=== PATIENT | female | born 2005 | race Two or more races ===

== ENCOUNTER 2023-04-14 20:17 | Emergency (ER) | payer SELFPAY ==
[2023-04-14 21:02] LABS: Bilirubin Negative (Negative); Blood, Urine Negative (Negative); CAUTI Indications for Culture Pelvic or flank pain; Clarity Clear (Clear); Glucose, Urine (Dipstick) Greater than 1000 mg/dL (Negative); Ketone, Urine 40 mg/dL (Negative); Leukocyte 75 Leu/uL (Negative); Nitrite Negative (Negative); Protein, Urine (Dipstick) 50 mg/dL (Neg-Trace); RBC/HPF 0-3 HPF (0-3); Specific Gravity, Urine 1.022 (1.002-1.036); Urobilinogen Normal mg/dL (Less than 2)
[2023-04-14 21:03] LABS: Bacteria/HPF 1+ HPF (None Seen)
[2023-04-14 21:04] LABS: Urine Culture Reflex No No
[2023-04-14] MEDS ORDERED: Metoclopramide HCl 10 MG (2 mL) VIAL ONE (21:22)
[2023-04-14 22:24] LABS: #Basophils 0.1 thou/uL (0.0-0.2); #Eosinphils 0.5 thou/uL (0.0-0.7); #Monocytes 0.9 thou/uL (0.11-0.59); #Neutrophils 6.7 thou/uL (1.40-6.50); %Basophils 0.8 % (0.0-1.0); %Eosinophils 4.7 % (0.0-10.0); %Lymphocytes 27.6 % (28.0-48.0); %Monocytes 8.1 % (0.0-4.0); %Neutrophils 58.3 % (31.0-61.0); Hematocrit 35.7 % (36.0-47.0); Hemoglobin 11.9 g/dL (12.0-16.0); Mean Corpuscular HGB CONC 33.3 g/dL (32.0-36.0); Mean Corpuscular Hemoglobin 26.3 pg (25.0-35.0); Mean Corpuscular Volume 78.8 fl (78.0-98.0); Mean Platelet Volume 9.9 fL (7.4-10.4); Platelet Count 422 10x3/uL (130-400); RBC Distribution Width 15.9 % (11.5-14.5); Red Blood Cell (RBC) Count 4.53 mill/uL (4.00-5.20); White Blood Cell (WBC) Count 11.5 10x3/uL (4.8-10.8)
[2023-04-14 22:36] LABS: BHCG - Serum Negative (NEGATIVE); Pregs Control Background? CLEAR/WHITE (CLR/WHITE); Pregs Control Bar Appear? YES (CONTROL BAR)
[2023-04-14] MEDS ORDERED: Sodium Chloride 0.9% 100 ML ONE (23:03)
[2023-04-14] MEDS ORDERED: cefTRIAXone (ROCEPHIN) 1 GM VIAL ONE (23:03)
[2023-04-14 23:08] LABS: ALT (SGPT) 94 U/L (8-55); Albumin 4.8 g/dL (3.5-5.0); Alkaline Phosphatase 121 U/L (40-100); Anion Gap 25 mmol/L (10-20); BUN (Urea Nitrogen) 19 mg/dL (8.4-21.0); Bilirubin, Total 0.4 mg/dL (0.2-1.2); Calc. Creatinine Clearance 0 mL/min (70-130); Calcium 10.4 mg/dL (7.8-10.44); Carbon Dioxide 24 mmol/L (22-29); Chloride 88 mmol/L (98-107); Critical Call Chemistry NUR.MH12@2308; Estimated GFR 57; Globulin 4.1 g/dL (2.4-3.5); Glucose 46 mg/dL (70-105); Potassium 3.5 mmol/L (3.5-5.1); Protein, Total 8.9 g/dL (6.0-8.3); Sodium 133 mmol/L (136-145)
[2023-04-14 23:59] LABS: AST (SGOT) 104 U/L (5-30)
== END 2023-04-15 ==
LOC: ERS 20:17
DX: N39.0 Urinary tract infection, site not specified (principal); N17.9 Acute kidney failure, unspecified; K31.84 Gastroparesis; E10.65 Type 1 diabetes mellitus with hyperglycemia
CPT/HCPCS: 36415; 36416; 80053; 81001; 84703; 85025; 96361; 96365; 96375; J0696; J2765; J3490

== ENCOUNTER 2023-04-26 12:29 | Inpatient (IN) | payer OTHER, SELFPAY ==
[2023-04-26 13:22] LABS: Base Excess -29.5 mEq/L (-2.0 to +3.0); Chloride (VBG) 93 mmol/L (98-106); Hematocrit-VBG 42 % (36.0-47.0); Hemoglobin (Hb) 14.2 g/dL (11.7-15.5); Potassium (VBG) 5.63 mmol/L (3.70-5.30); Sodium 137 mmol/L (133-146)
[2023-04-26 13:23] LABS: Hematocrit 46.3 % (36.0-47.0); Hemoglobin 13.2 g/dL (12.0-16.0); Manual Diff?? YES; Mean Corpuscular HGB CONC 28.5 g/dL (32.0-36.0); Mean Corpuscular Hemoglobin 26.9 pg (25.0-35.0); Mean Corpuscular Volume 94.3 fl (78.0-98.0); Platelet Count 525 10x3/uL (130-400); RBC Distribution Width 18.1 % (11.5-14.5); Red Blood Cell (RBC) Count 4.91 mill/uL (4.00-5.20)
[2023-04-26 13:24] LABS: pH (venous) 6.862 (7.32-7.43)
[2023-04-26 13:25] LABS: Delete Auto Diff?? YES
[2023-04-26] MEDS ORDERED: Ondansetron PF 4 MG/2 ML Vial ONE (13:27)
[2023-04-26] MEDS ORDERED: Sodium Bicarb 50 mEq/50 ML VIAL ONE (13:30)
[2023-04-26 13:38] LABS: INR-International Normal Ratio 1.4; PTT 29.9 sec (22.9-36.1); Prothrombin Time 17.3 sec (12.0-14.7)
[2023-04-26 13:42] LABS: Troponin I Less than 0.010 ng/mL (< 0.028)
[2023-04-26 13:46] LABS: Acetaminophen Less than 10 mcg/mL (10.0-30.0); Alcohol Less than 10.0 mg/dL (Less than 10); Anisocytosis SLIGHT = 6-15 cells HPF (0-5); Band 6 % (5-11); CellaVision Operator ID LAB.MJL; Eosinophils 4 % (0-10); Lipase 70 U/L (8-78); Lymphocytes 12 % (28-48); Magnesium 2.6 mg/dL (1.7-2.2); Monocytes 1 % (0-4); Myelocyte 2 % (0-0); Neutrophil 73 % (31-61); Platelet Adequacy Comment Platelets Increased; Polychromasia SLIGHT = 2-3 cells HPF (0-2); Reactive Lymphocytes 1 % (0-10); Salicylate Less than 8.0 mg/dL (15.0-30.0); Tear Drops SLIGHT = 2-5 cells HPF (0-1); Total Cell Count 97
[2023-04-26 13:48] LABS: ALT (SGPT) 213 U/L (8-55); AST (SGOT) 63 U/L (5-30); Alkaline Phosphatase 214 U/L (40-100); BUN (Urea Nitrogen) 34 mg/dL (8.4-21.0); Bilirubin, Total 0.5 mg/dL (0.2-1.2); Calc. Creatinine Clearance 0 mL/min (70-130); Calcium 9.7 mg/dL (7.8-10.44); Chloride 89 mmol/L (98-107); Estimated GFR 24; Globulin 3.8 g/dL (2.4-3.5); Potassium 5.8 mmol/L (3.5-5.1); Protein, Total 8.8 g/dL (6.0-8.3); Sodium 131 mmol/L (136-145)
[2023-04-26 13:54] LABS: Carbon Dioxide Less than 8 mmol/L (22-29); Critical Call Chemistry ERS.EGM@1353; Glucose 1042 mg/dL (70-105)
[2023-04-26] MEDS ORDERED: Acetaminophen 325 MG TAB PO PRN (14:05)
[2023-04-26] MEDS ORDERED: Dextrose 5 %-0.45 % NaCl 1,000 ML IV PRN (14:05)
[2023-04-26] MEDS ORDERED: Ondansetron PF 4 MG/2 ML Vial IVP PRN (14:05)
[2023-04-26] MEDS ORDERED: Sodium Chloride 0.9% 1,000 ML IV PRN ×4 (14:05)
[2023-04-26] MEDS ORDERED: NS 0.9% w/ 20 MEQ KCL 1,000 ML IV PRN (14:05)
[2023-04-26] MEDS ORDERED: INSULIN REGULAR IN 0.9 % NACL 100 UNITS/100 ML BAG ONE (14:27)
[2023-04-26 14:52] LABS: Bacteria/HPF 1+ HPF (None Seen); Bilirubin Negative (Negative); Blood, Urine Negative (Negative); CAUTI Indications for Culture Alt mental st,lethar; Clarity Clear (Clear); Glucose, Urine (Dipstick) Greater than 1000 mg/dL (Negative); Ketone, Urine Greater than 150 mg/dL (Negative); Leukocyte Negative Leu/uL (Negative); Nitrite Negative (Negative); Protein, Urine (Dipstick) 20 mg/dL (Neg-Trace); RBC/HPF 0-3 HPF (0-3); Squamous Epithelial 0-3 HPF (0-3); Urobilinogen Normal mg/dL (Less than 2); WBC/HPF 0-3 HPF (0-3)
[2023-04-26 14:53] LABS: Pregnancy Test - Urine (BHCG) Negative (Negative); Pregu Control Background? CLEAR/WHITE (CLR/WHITE); Pregu Control Bar Appear? YES (CONTROL BAR); Urine Culture Reflex No No
[2023-04-26 14:59] LABS: Amphetamine Not Detected (NotDetected); Barbiturates Screen Not Detected (NotDetected); Benzodiazepine Screen Not Detected (NotDetected); Cocaine Metabolite Screen Not Detected (NotDetected); Methadone Not Detected (NotDetected); Methamphetamine Not Detected (NotDetected); Opiate Screen Not Detected (NotDetected); Oxycodone Screen Not Detected (NotDetected); Phencyclidine (PCP) Not Detected (NotDetected); THC/Cannabinoid Screen Not Detected (NotDetected); Tricyclic Screen Not Detected (NotDetected)
[2023-04-26] MEDS: Sodium Bicarbonate 150 mEq in Dextrose 5% IV SCH (15:10)
[2023-04-26] MEDS: Electrolyte Replacement Protocol 1 EACH IVPB ONE (15:50)
[2023-04-26] MEDS: Heparin 5,000 UNITS/ML VIAL SC SCH (15:57)
[2023-04-26 16:17] LABS: SARS-CoV-2 NAA Rapid Test Not Detected (NotDetected)
[2023-04-26] MEDS: Lactated Ringer's 2,000 ML IV SCH (16:52)
[2023-04-26 17:00] VITALS: BMI 24.0
[2023-04-26 17:12] LABS: BUN (Urea Nitrogen) 32 mg/dL (8.4-21.0); Calc. Creatinine Clearance 30 mL/min (70-130); Calcium 9.3 mg/dL (7.8-10.44); Chloride 98 mmol/L (98-107); Estimated GFR 26; Potassium 5.4 mmol/L (3.5-5.1); Sodium 137 mmol/L (136-145)
[2023-04-26 17:26] LABS: Carbon Dioxide Less than 8 mmol/L (22-29); Glucose 894 mg/dL (70-105)
[2023-04-26] MEDS: HUMULIN R 100 UNITS in Sodium Chloride 0.9% 100 ML IVPB SCH (18:01)
[2023-04-26 19:14] LABS: Critical Call Chem-Lactate NUR.KK6@1914; Lactic Acid 10.7 mmol/L (0.5-2.2)
[2023-04-26 19:27] LABS: BUN (Urea Nitrogen) 26 mg/dL (8.4-21.0); Calc. Creatinine Clearance 38 mL/min (70-130); Calcium 7.7 mg/dL (7.8-10.44); Carbon Dioxide Less than 8 mmol/L (22-29); Chloride 111 mmol/L (98-107); Critical Call Chemistry NUR.KK6@1927; Estimated GFR 34; Glucose 471 mg/dL (70-105); Potassium 3.7 mmol/L (3.5-5.1); Sodium 141 mmol/L (136-145)
[2023-04-26] MEDS: NS 0.9% w/ 20 MEQ KCL 1,000 ML IV PRN (19:40)
[2023-04-26] MEDS: Sodium Bicarb 50 mEq/50 ML VIAL IVP SCH (19:50)
[2023-04-26] MEDS: Famotidine/PF 20 mg/2ml Vial SLOW IVP SCH (20:43)
[2023-04-26] MEDS: D5 1/2 NS w/20 mEq KCL 1,000 ML IV PRN (22:07)
[2023-04-26] MEDS: Calcium Gluconate 9.2 MEQ in Sodium Chloride 0.9% 250 ML 200 ML IVPB SCH (22:08)
[2023-04-26 23:48] LABS: Actual Bicarbonate (HCO3v) 16.1 mEq/L (22-28); Base Excess -8.8 mEq/L (-2.0 to +3.0); Chloride (VBG) 112 mmol/L (98-106); Hematocrit-VBG 29 % (36.0-47.0); Hemoglobin (Hb) 9.9 g/dL (11.7-15.5); Sodium 149 mmol/L (133-146); pH (venous) 7.329 (7.32-7.43)
[2023-04-27 00:08] LABS: Anion Gap 19 mmol/L (10-20); BUN (Urea Nitrogen) 18 mg/dL (8.4-21.0); Calc. Creatinine Clearance 48 mL/min (70-130); Calcium 8.2 mg/dL (7.8-10.44); Carbon Dioxide 19 mmol/L (22-29); Chloride 112 mmol/L (98-107); Estimated GFR 45; Glucose 188 mg/dL (70-105); Potassium 3.3 mmol/L (3.5-5.1); Sodium 147 mmol/L (136-145)
[2023-04-27] MEDS: Dextrose 50% Abboject 50 ML SYRINGE SLOW IVP PRN (00:19)
[2023-04-27 00:23] LABS: Critical Call Chem-Lactate NUR.KK6@0023; Lactic Acid 7.8 mmol/L (0.5-2.2)
[2023-04-27 00:24] LABS: Critical Call Chemistry NUR.KK6@0023; Magnesium 1.5 mg/dL (1.7-2.2); Phosphorus Less than 1.0 mg/dL (2.3-4.7)
[2023-04-27] MEDS: Magnesium 2 GM/50 ML(in water) 2 GM in Premix 1 BAG IVPB SCH (01:15)
[2023-04-27] MEDS: Potassium Phosphate 30 MMOL in Sodium Chloride 0.9% 250 ML 250 ML IVPB SCH (01:23)
[2023-04-27 04:31] LABS: Anion Gap 17 mmol/L (10-20); BUN (Urea Nitrogen) 15 mg/dL (8.4-21.0); Calc. Creatinine Clearance 53 mL/min (70-130); Calcium 7.7 mg/dL (7.8-10.44); Carbon Dioxide 18 mmol/L (22-29); Chloride 112 mmol/L (98-107); Estimated GFR 51; Glucose 154 mg/dL (70-105); Potassium 3.6 mmol/L (3.5-5.1); Sodium 143 mmol/L (136-145)
[2023-04-27 04:39] LABS: Critical Call Chem-Lactate ICU.TMC@0438; Lactic Acid 5.8 mmol/L (0.5-2.2)
[2023-04-27 08:41] LABS: Phosphorus 2.8 mg/dL (2.3-4.7)
[2023-04-27 08:42] LABS: Anion Gap 15 mmol/L (10-20); BUN (Urea Nitrogen) 12 mg/dL (8.4-21.0); Calc. Creatinine Clearance 63 mL/min (70-130); Calcium 7.7 mg/dL (7.8-10.44); Carbon Dioxide 20 mmol/L (22-29); Chloride 112 mmol/L (98-107); Estimated GFR 59; Glucose 181 mg/dL (70-105); Magnesium 1.9 mg/dL (1.7-2.2); Potassium 3.6 mmol/L (3.5-5.1); Sodium 143 mmol/L (136-145)
[2023-04-27 12:03] LABS: Anion Gap 19 mmol/L (10-20); BUN (Urea Nitrogen) 9 mg/dL (8.4-21.0); Calc. Creatinine Clearance 71 mL/min (70-130); Calcium 7.5 mg/dL (7.8-10.44); Carbon Dioxide 13 mmol/L (22-29); Chloride 108 mmol/L (98-107); Estimated GFR 68; Glucose 170 mg/dL (70-105); Potassium 3.7 mmol/L (3.5-5.1); Sodium 136 mmol/L (136-145)
[2023-04-27] MEDS ORDERED: Dextrose 5% in Water 1,000 ML IV PRN (12:29)
[2023-04-27] MEDS ORDERED: Glucagon 1 MG/ML KIT IM PRN (12:29)
[2023-04-27] MEDS ORDERED: Dextrose 50% Abboject 50 ML SYRINGE SLOW IVP PRN (12:29)
[2023-04-27] MEDS: Insulin Glargine 30 UNITS/0.3 ML VIAL SC SCH ×2 (12:40→20:40)
[2023-04-27] MEDS: Sodium Chloride 0.9% 1,000 ML IV SCH (14:02)
[2023-04-27] MEDS: HumaLOG 300 UNITS/3 ML VIAL SC PRN ×2 (16:07→20:49)
[2023-04-27] MEDS: Heparin 5,000 UNITS/ML VIAL SC SCH (20:40)
[2023-04-28 08:41] LABS: Chloride 107 mmol/L (98-107); Potassium 4.5 mmol/L (3.5-5.1); Sodium 138 mmol/L (136-145)
[2023-04-28 08:42] LABS: Calcium 8.1 mg/dL (7.8-10.44); Glucose 284 mg/dL (70-105)
[2023-04-28 08:44] LABS: Anion Gap 27 mmol/L (10-20)
[2023-04-28 08:46] LABS: BUN (Urea Nitrogen) 7 mg/dL (8.4-21.0); Calc. Creatinine Clearance 70 mL/min (70-130); Estimated GFR 63
[2023-04-28 08:53] LABS: Carbon Dioxide 9 mmol/L (22-29)
[2023-04-28] MEDS: Insulin Glargine 30 UNITS/0.3 ML VIAL SC SCH (09:00)
[2023-04-29] MEDS: hydrALAZINE 25 MG TAB PO SCH (03:58)
[2023-04-29 04:52] VITALS: TEMP 97.9
[2023-04-29 05:52] LABS: #Eosinphils 0.3 thou/uL (0.0-0.7); #Monocytes 0.4 thou/uL (0.11-0.59); #Neutrophils 2.7 thou/uL (1.40-6.50); %Basophils 0.7 % (0.0-1.0); %Eosinophils 4.9 % (0.0-10.0); %Lymphocytes 39.2 % (28.0-48.0); %Monocytes 6.9 % (0.0-4.0); %Neutrophils 47.6 % (31.0-61.0); Hematocrit 27.8 % (36.0-47.0); Hemoglobin 9.6 g/dL (12.0-16.0); Mean Corpuscular HGB CONC 34.5 g/dL (32.0-36.0); Mean Corpuscular Hemoglobin 28.7 pg (25.0-35.0); Mean Platelet Volume 10.4 fL (7.4-10.4); Platelet Count 242 10x3/uL (130-400); RBC Distribution Width 17.5 % (11.5-14.5); Red Blood Cell (RBC) Count 3.35 mill/uL (4.00-5.20); White Blood Cell (WBC) Count 5.7 10x3/uL (4.8-10.8)
[2023-04-29 06:24] LABS: Anion Gap 21 mmol/L (10-20); BUN (Urea Nitrogen) 12 mg/dL (8.4-21.0); Calc. Creatinine Clearance 90 mL/min (70-130); Calcium 8.4 mg/dL (7.8-10.44); Carbon Dioxide 17 mmol/L (22-29); Chloride 102 mmol/L (98-107); Estimated GFR 86; Glucose 266 mg/dL (70-105); Potassium 3.8 mmol/L (3.5-5.1); Sodium 136 mmol/L (136-145)
[2023-04-29] MEDS: FLU VACC QS2023-24(6MOS UP)/PF 60 MCG/0.5 ML SYRINGE IM ONE (08:17)
[2023-04-29 09:43] VITALS: BP 125/82
== END 2023-04-29 12:07 | disposition home or self-care (01) | DRG 638 ==
LOC: ERS 12:29 → CCU 14:08 → MSONC 04-27 18:50
PROVIDERS: ADMIT Internal Medicine; ATTEND Internal Medicine
PROC: 02HV33Z Insertion of Infusion Device into Superior Vena Cava, Percutaneous Approach (ICD-10-PCS; principal; 2023-04-26)
PROC: B548ZZA Ultrasonography of Superior Vena Cava, Guidance (ICD-10-PCS; 2023-04-26)
DX: E10.10 Type 1 diabetes mellitus with ketoacidosis without coma (principal); N17.9 Acute kidney failure, unspecified; E86.0 Dehydration; N18.9 Chronic kidney disease, unspecified; E83.39 Other disorders of phosphorus metabolism; E87.5 Hyperkalemia; Z11.52 Encounter for screening for COVID-19; Z88.1 Allergy status to other antibiotic agents
CPT/HCPCS: 36415; 36416; 36556; 70450; 71045; 80048; 80053; 80306; 80307; 81001; 81025; 82010; 82805; 83605; 83690; 83735; 84100; 84484; 85025; 85610; 85730; 87040; 87086; 93005; 94760; 96361; 96374; 96375; J0612; J1644; J1815; J2405; J3475; J3480; J3490; J7042; J7050; J7070; J7120; J7999; S0028; U0002

== ENCOUNTER 2023-05-06 13:29 | Inpatient (IN) | payer OTHER, SELFPAY ==
[2023-05-06] MEDS ORDERED: Sodium Bicarbonate Tab 325 MG TAB ONE (13:52)
[2023-05-06] MEDS ORDERED: Dextrose 10% in Water 250 ML ONE (13:53)
[2023-05-06] MEDS ORDERED: Insulin Regular 300 UNITS/3 ML VIAL ONE (13:53)
[2023-05-06] MEDS: Sodium Chloride 0.9% 1,000 ML IV PRN ×2 (14:09→15:23)
[2023-05-06 14:17] LABS: Hematocrit 34.1 % (36.0-47.0); Hemoglobin 9.4 g/dL (12.0-16.0); Manual Diff?? YES; Mean Corpuscular HGB CONC 27.6 g/dL (32.0-36.0); Mean Corpuscular Hemoglobin 27.6 pg (25.0-35.0); Mean Corpuscular Volume 100.3 fl (78.0-98.0); Mean Platelet Volume 10.3 fL (7.4-10.4); Platelet Count 624 10x3/uL (130-400); RBC Distribution Width 18.2 % (11.5-14.5); White Blood Cell (WBC) Count 24.8 10x3/uL (4.8-10.8)
[2023-05-06 14:20] LABS: Delete Auto Diff?? YES
[2023-05-06 14:29] LABS: Bacteria/HPF None Seen HPF (None Seen); Bilirubin Negative (Negative); Blood, Urine Negative (Negative); CAUTI Indications for Culture Alt mental st,lethar; Clarity Clear (Clear); Glucose, Urine (Dipstick) Greater than 1000 mg/dL (Negative); Ketone, Urine Greater than 150 mg/dL (Negative); Leukocyte Negative Leu/uL (Negative); Nitrite Negative (Negative); Protein, Urine (Dipstick) 30 mg/dL (Neg-Trace); RBC/HPF 0-3 HPF (0-3); Squamous Epithelial 0-3 HPF (0-3); Urine Culture Reflex No No; Urobilinogen Normal mg/dL (Less than 2); WBC/HPF None Seen HPF (0-3)
[2023-05-06 14:36] LABS: Analyzer IN Cardio ER; Base Excess -26.9 mEq/L (-2.0 to +3.0); Calcium, Ionized (venous) 1.09 mmol/L (1.16-1.32); Chloride (VBG) 101 mmol/L (98-106); Hematocrit-VBG 29 % (36.0-47.0); Hemoglobin (Hb) 9.9 g/dL (11.7-15.5); Potassium (VBG) 5.32 mmol/L (3.70-5.30); Sodium 146 mmol/L (133-146)
[2023-05-06 14:39] LABS: pH (venous) 6.955 (7.32-7.43)
[2023-05-06 14:40] LABS: Actual Bicarbonate (HCO3v) 3.3 mEq/L (22-28)
[2023-05-06 14:46] LABS: Anisocytosis SLIGHT = 6-15 cells HPF (0-5); BUN (Urea Nitrogen) 39 mg/dL (8.4-21.0); Band 4 % (5-11); Bilirubin, Total 0.3 mg/dL (0.2-1.2); Burr Cells SLIGHT = 2-5 cells HPF (0-1); Calc. Creatinine Clearance 0 mL/min (70-130); Calcium 8.3 mg/dL (7.8-10.44); CellaVision Operator ID LAB.KB; Chloride 101 mmol/L (98-107); Eosinophils 2 % (0-10); Estimated GFR 32; Lymphocytes 27 % (28-48); Macrocytosis SLIGHT = 6-15 cells HPF (0-5); Myelocyte 4 % (0-0); Neutrophil 62 % (31-61); Ovalocytes SLIGHT = 2-5 cells HPF (0-1); Platelet Adequacy Comment Platelets Increased; Polychromasia SLIGHT = 2-3 cells HPF (0-2); Potassium 4.8 mmol/L (3.5-5.1); Protein, Total 6.9 g/dL (6.0-8.3); Smudge Cells 6.9 %; Sodium 136 mmol/L (136-145); Total Cell Count 102
[2023-05-06 14:47] LABS: ALT (SGPT) 83 U/L (8-55); AST (SGOT) 45 U/L (5-30); Alkaline Phosphatase 133 U/L (40-100); Globulin 2.9 g/dL (2.4-3.5); Lipase 33 U/L (8-78); Magnesium 2.7 mg/dL (1.7-2.2)
[2023-05-06] MEDS ORDERED: INSULIN REGULAR IN 0.9 % NACL 100 UNITS/100 ML BAG ONE (14:48)
[2023-05-06 14:50] LABS: Troponin I Less than 0.010 ng/mL (< 0.028)
[2023-05-06 14:51] LABS: Carbon Dioxide Less than 8 mmol/L (22-29); Critical Call Chemistry ERS.JAN @1450; Glucose 1094 mg/dL (70-105)
[2023-05-06] MEDS ORDERED: Sodium Chloride 0.9% 1,000 ML IV PRN ×2 (14:55)
[2023-05-06] MEDS ORDERED: Electrolyte Replacement Protocol IVPB SCH (14:55)
[2023-05-06] MEDS ORDERED: Dextrose 5 %-0.45 % NaCl 1,000 ML IV PRN (14:55)
[2023-05-06] MEDS ORDERED: NS 0.9% w/ 20 MEQ KCL 1,000 ML IV PRN (14:55)
[2023-05-06] MEDS ORDERED: HUMULIN R 100 UNITS in Sodium Chloride 0.9% 100 ML IVPB SCH (15:00)
[2023-05-06 15:10] LABS: SARS-CoV-2 NAA Rapid Test Not Detected (NotDetected)
[2023-05-06 15:11] LABS: Critical Call Chemistry NUR.RG3 @1511; Phosphorus 10.7 mg/dL (2.3-4.7)
[2023-05-06 16:15] LABS: Acetaminophen Less than 10 mcg/mL (10.0-30.0); Alcohol Less than 10.0 mg/dL (Less than 10); BUN (Urea Nitrogen) 41 mg/dL (8.4-21.0); Calc. Creatinine Clearance 31 mL/min (70-130); Calcium 8.6 mg/dL (7.8-10.44); Chloride 102 mmol/L (98-107); Estimated GFR 29; Potassium 5.5 mmol/L (3.5-5.1); Salicylate Less than 8.0 mg/dL (15.0-30.0); Sodium 140 mmol/L (136-145)
[2023-05-06 16:22] LABS: Carbon Dioxide Less than 8 mmol/L (22-29); Critical Call Chemistry NUR.RG3 @1621; Glucose 993 mg/dL (70-105)
[2023-05-06 16:28] LABS: Amphetamine Not Detected (NotDetected); Barbiturates Screen Not Detected (NotDetected); Benzodiazepine Screen Not Detected (NotDetected); Cocaine Metabolite Screen Not Detected (NotDetected); Methadone Not Detected (NotDetected); Methamphetamine Not Detected (NotDetected); Opiate Screen Not Detected (NotDetected); Oxycodone Screen Not Detected (NotDetected); Phencyclidine (PCP) Not Detected (NotDetected); THC/Cannabinoid Screen Not Detected (NotDetected); Tricyclic Screen Not Detected (NotDetected)
[2023-05-06 17:29] VITALS: BP 144/88
[2023-05-06 17:38] VITALS: BMI 23.6
[2023-05-06 17:54] LABS: Critical Call Chem-Lactate NUR.TA6 @1753; Critical Call Chemistry NUR.TA6 @1753; Glucose 792 mg/dL (70-105); Lactic Acid 4.9 mmol/L (0.5-2.2)
[2023-05-06 19:32] LABS: BUN (Urea Nitrogen) 34 mg/dL (8.4-21.0); Calc. Creatinine Clearance 37 mL/min (70-130); Calcium 8.3 mg/dL (7.8-10.44); Chloride 117 mmol/L (98-107); Estimated GFR 33; Potassium 4.6 mmol/L (3.5-5.1); Sodium 148 mmol/L (136-145)
[2023-05-06] MEDS: NS 0.9% w/ 20 MEQ KCL 1,000 ML IV PRN (19:45)
[2023-05-06 19:48] LABS: Carbon Dioxide Less than 8 mmol/L (22-29); Glucose 518 mg/dL (70-105)
[2023-05-06] MEDS: Ampicillin/Sulbactam 3 GM in Sodium Chloride 0.9% 100 ML IVPB SCH (21:07)
[2023-05-06] MEDS: D5 1/2 NS w/20 mEq KCL 1,000 ML IV PRN (23:27)
[2023-05-06] MEDS: Dextrose 50% Abboject 50 ML SYRINGE SLOW IVP PRN (23:27)
[2023-05-06 23:42] LABS: Base Excess -12.2 mEq/L (-2.0 to +3.0); Chloride (VBG) 118 mmol/L (98-106); Hematocrit-VBG 26 % (36.0-47.0); Potassium (VBG) 4.02 mmol/L (3.70-5.30); pH (venous) 7.266 (7.32-7.43)
[2023-05-06 23:49] LABS: Lactic Acid 2.5 mmol/L (0.5-2.2)
[2023-05-06 23:51] LABS: Anion Gap 22 mmol/L (10-20); BUN (Urea Nitrogen) 27 mg/dL (8.4-21.0); Calc. Creatinine Clearance 46 mL/min (70-130); Carbon Dioxide 12 mmol/L (22-29); Chloride 120 mmol/L (98-107); Estimated GFR 43; Glucose 92 mg/dL (70-105); Sodium 150 mmol/L (136-145)
[2023-05-07 05:35] LABS: Lactic Acid 2.9 mmol/L (0.5-2.2)
[2023-05-07 05:41] LABS: Anion Gap 12 mmol/L (10-20); BUN (Urea Nitrogen) 20 mg/dL (8.4-21.0); Calc. Creatinine Clearance 53 mL/min (70-130); Calcium 7.8 mg/dL (7.8-10.44); Carbon Dioxide 18 mmol/L (22-29); Chloride 117 mmol/L (98-107); Estimated GFR 49; Glucose 186 mg/dL (70-105); Magnesium 1.8 mg/dL (1.7-2.2); Potassium 3.4 mmol/L (3.5-5.1); Sodium 144 mmol/L (136-145)
[2023-05-07 06:41] LABS: Phosphorus 1.6 mg/dL (2.3-4.7)
[2023-05-07] MEDS: Magnesium 2 GM/50 ML(in water) 2 GM in Premix 1 BAG IVPB SCH (09:24)
[2023-05-07] MEDS: PHOS-NAK 1 PKT PACK PO SCH (09:24)
[2023-05-07] MEDS: Potassium Chloride 20 MEQ in Premix 1 BAG IVPB SCH (09:25)
[2023-05-07] MEDS ORDERED: Dextrose 5% in Water 1,000 ML IV PRN (10:32)
[2023-05-07] MEDS ORDERED: Dextrose 50% Abboject 50 ML SYRINGE SLOW IVP PRN (10:32)
[2023-05-07] MEDS ORDERED: Glucagon 1 MG/ML KIT IM PRN (10:32)
[2023-05-07] MEDS: NS 0.9% w/ 20 MEQ KCL 1,000 ML/1,000 ML BAG IV SCH (12:17)
[2023-05-07] MEDS: Insulin Glargine 30 UNITS/0.3 ML VIAL SC SCH ×2 (12:19→20:14)
[2023-05-07 14:11] LABS: Actual Bicarbonate (HCO3v) 13.7 mEq/L (22-28)
[2023-05-07] MEDS: Ampicillin/Sulbactam 3 GM in Sodium Chloride 0.9% 100 ML IVPB SCH (15:43)
[2023-05-07] MEDS: HumaLOG 300 UNITS/3 ML VIAL SC PRN (15:52)
[2023-05-07 16:30] LABS: Potassium 5.3 mmol/L (3.5-5.1)
[2023-05-07] MEDS ORDERED: Insulin Glargine 30 UNITS/0.3 ML VIAL SC SCH (21:00)
[2023-05-08 06:42] LABS: #Basophils 0.1 thou/uL (0.0-0.2); #Eosinphils 0.3 thou/uL (0.0-0.7); #Monocytes 0.5 thou/uL (0.11-0.59); #Neutrophils 5.3 thou/uL (1.40-6.50); %Basophils 0.7 % (0.0-1.0); %Eosinophils 3.8 % (0.0-10.0); %Lymphocytes 28.2 % (28.0-48.0); %Monocytes 5.8 % (0.0-4.0); %Neutrophils 59.8 % (31.0-61.0); Hematocrit 25.5 % (36.0-47.0); Hemoglobin 8.2 g/dL (12.0-16.0); Mean Corpuscular HGB CONC 32.2 g/dL (32.0-36.0); Mean Corpuscular Hemoglobin 27.8 pg (25.0-35.0); Mean Corpuscular Volume 86.4 fl (78.0-98.0); Mean Platelet Volume 9.5 fL (7.4-10.4); Platelet Count 317 10x3/uL (130-400); Red Blood Cell (RBC) Count 2.95 mill/uL (4.00-5.20); White Blood Cell (WBC) Count 8.9 10x3/uL (4.8-10.8)
[2023-05-08 06:51] LABS: Hemoglobin A1c Greater than 14.0 % (4.0-6.0)
[2023-05-08 06:59] LABS: Anion Gap 15 mmol/L (10-20); BUN (Urea Nitrogen) 8 mg/dL (8.4-21.0); Calc. Creatinine Clearance 65 mL/min (70-130); Calcium 8.7 mg/dL (7.8-10.44); Carbon Dioxide 19 mmol/L (22-29); Chloride 106 mmol/L (98-107); Estimated GFR 61; Glucose 328 mg/dL (70-105); Magnesium 1.6 mg/dL (1.7-2.2); Phosphorus 3.2 mg/dL (2.3-4.7); Potassium 4.1 mmol/L (3.5-5.1); Sodium 136 mmol/L (136-145)
[2023-05-08] MEDS: Magnesium 2 GM/50 ML(in water) 2 GM in Premix 1 BAG IVPB SCH (08:43)
[2023-05-08] MEDS: Insulin Glargine 30 UNITS/0.3 ML VIAL SC SCH ×2 (08:44→20:58)
[2023-05-08] MEDS: Insulin Regular 300 UNITS/3 ML VIAL SC PRN (12:35)
[2023-05-08] MEDS ORDERED: Insulin Regular 300 UNITS/3 ML VIAL SC PRN (12:49)
[2023-05-08] MEDS ORDERED: HumaLOG 300 UNITS/3 ML VIAL SC PRN (17:01)
[2023-05-08] MEDS: HumaLOG 300 UNITS/3 ML VIAL SC PRN (17:14)
[2023-05-09 05:52] LABS: Anion Gap 15 mmol/L (10-20); BUN (Urea Nitrogen) 14 mg/dL (8.4-21.0); Calc. Creatinine Clearance 76 mL/min (70-130); Carbon Dioxide 21 mmol/L (22-29); Chloride 103 mmol/L (98-107); Estimated GFR 77; Glucose 333 mg/dL (70-105); Magnesium 1.7 mg/dL (1.7-2.2); Potassium 4.3 mmol/L (3.5-5.1); Sodium 135 mmol/L (136-145)
[2023-05-09 05:56] LABS: Phosphorus 5.2 mg/dL (2.3-4.7)
[2023-05-09] MEDS ORDERED: HumaLOG 300 UNITS/3 ML VIAL SC PRN (08:18)
[2023-05-09] MEDS ORDERED: Insulin Glargine 30 UNITS/0.3 ML VIAL SC SCH (08:19)
[2023-05-09] MEDS: Magnesium 2 GM/50 ML(in water) 2 GM in Premix 1 BAG IVPB SCH (08:47)
[2023-05-09] MEDS: Insulin Glargine 30 UNITS/0.3 ML VIAL SC SCH (08:48)
[2023-05-09] MEDS: FLU VACC QS2023-24(6MOS UP)/PF 60 MCG/0.5 ML SYRINGE IM ONE (08:48)
[2023-05-09] MEDS: HumaLOG 300 UNITS/3 ML VIAL SC SCH (12:01)
[2023-05-09 12:11] VITALS: TEMP 98.1
== END 2023-05-09 13:13 | disposition home or self-care (01) | DRG 637 ==
LOC: ERS 13:29 → ERHOLD 14:58 → CCU 16:58
PROVIDERS: ADMIT Internal Medicine; ATTEND Family Medicine
DX: E10.10 Type 1 diabetes mellitus with ketoacidosis without coma (principal); G93.41 Metabolic encephalopathy; N17.9 Acute kidney failure, unspecified; E87.0 Hyperosmolality and hypernatremia; R65.10 Systemic inflammatory response syndrome (SIRS) of non-infectious origin without acute organ dysfunction; E86.0 Dehydration; E83.39 Other disorders of phosphorus metabolism; E86.9 Volume depletion, unspecified; E10.69 Type 1 diabetes mellitus with other specified complication; N18.9 Chronic kidney disease, unspecified; E10.22 Type 1 diabetes mellitus with diabetic chronic kidney disease; Z88.0 Allergy status to penicillin; Z88.8 Allergy status to other drugs, medicaments and biological substances; Z91.148 Patient's other noncompliance with medication regimen for other reason; Z11.52 Encounter for screening for COVID-19
CPT/HCPCS: 36415; 36416; 36556; 51702; 70450; 71045; 80048; 80053; 80306; 80307; 81001; 82010; 82805; 83036; 83605; 83690; 83735; 84100; 84484; 85025; 87040; 93005; 96365; 96366; 96367; 99292; J0295; J1815; J3475; J3480; J3490; J7030; J7050; J7999